=== PATIENT | male | born 1930 | race Caucasian/White ===

== ENCOUNTER 2021-06-17 14:45 | Inpatient (IN) ==
[2021-06-17] MEDS ORDERED: 0.9 % Sodium Chloride 500 ML IVC ONE (17:11)
[2021-06-17] MEDS ORDERED: Aspirin 81 MG TAB.CHEW PO ONE (17:11)
[2021-06-17 17:46] LABS: Basophils % 0.1 %; Eosinophils % 0.5 %; Hematocrit 37.7 % (37.5-50.1); Hemoglobin 12.4 g/dL (12.9-16.9); Immature Granulocytes % 0.4 % (0-4); Lymphocytes # 1.1 K/mcL (0.6-4.6); Lymphocytes % 13.6 %; Mean Corpuscular HGB Conc 32.9 g/dL (31.6-35.5); Mean Corpuscular Hemoglobin 30.2 pg (28.0-33.3); Mean Platelet Volume 11.4 fL (9.4-12.4); Monocytes # 0.9 K/mcL (0.0-1.3); Monocytes % 11.2 %; Neutrophils # 5.9 K/mcL (1.6-8.9); Platelet Count 203 K/mcL (140-400); Red Cell Distribution Width 12.7 % (11.5-14.5); Segmented Neutrophils % 74.2 %; White Blood Count 7.9 K/mcL (4.3-11.1)
[2021-06-17 17:58] LABS: INR 1.1; Prothrombin Time 12.6 Seconds (9.4-12.1)
[2021-06-17 18:01] LABS: Activated Partial Thrombo Time 33.6 Seconds (26.0-36.0); Calcium 9.2 mg/dL (8.6-10.3); Troponin I 0.03 ng/mL (< 0.04)
[2021-06-17] MEDS ORDERED: Melatonin 3 MG TABLET PO PRN (21:29)
[2021-06-17] MEDS ORDERED: Naloxone 0.4 MG/ML INJ IVP PRN (21:29)
[2021-06-17] MEDS ORDERED: *HR* Heparin 5,000 UNIT/ML VIAL IVP PRN (21:37)
[2021-06-17] MEDS ORDERED: *HR* Heparin 5,000 UNIT/ML VIAL IVP ONE (21:37)
[2021-06-17] MEDS ORDERED: Perflutren Lipid Microsphere 1.3 ML in 0.9 % Sodium Chloride 8.7 ML IVP PRN (21:39)
[2021-06-17] MEDS ORDERED: *HR* LORazepam 2 MG/ML VIAL IVP ONE (23:00)
[2021-06-18] MEDS: Heparin 25,000UNIT/250ML 1/2NS 25,000 UNIT/250 ML IV.SOLN IVC SCH (00:13)
[2021-06-18] MEDS: Polymyxn-B/Trimeth Opth Drops 10 ML BOTTLE LEFT EYE SCH ×5 (00:16→22:58)
[2021-06-18 01:29] LABS: Hematocrit 36.1 % (37.5-50.1); Hemoglobin 11.4 g/dL (12.9-16.9); Mean Corpuscular HGB Conc 31.6 g/dL (31.6-35.5); Mean Corpuscular Hemoglobin 29.4 pg (28.0-33.3); Mean Platelet Volume 11.6 fL (9.4-12.4); Platelet Count 195 K/mcL (140-400); Red Blood Count 3.88 M/mcL (4.19-5.50); Red Cell Distribution Width 12.7 % (11.5-14.5)
[2021-06-18 01:36] LABS: INR 1.2
[2021-06-18 01:39] LABS: Heparin anti-factor XA UFH 1.26 IU/mL (0.30-0.70)
[2021-06-18 01:43] LABS: Albumin 3.1 g/dL (3.5-5.7); Albumin/Globulin Ratio 1.3 (1.1-2.2); Bilirubin,Total 0.4 mg/dL (0.3-1.0); Calcium 8.9 mg/dL (8.6-10.3); Globulin 2.4 g/dL (2.4-3.5); Magnesium 2.4 mg/dL (1.6-2.6); Phosphorous 3.6 mg/dL (2.7-4.5); Total Protein 5.5 g/dL (6.4-8.9)
[2021-06-18 07:43] LABS: Troponin I < 0.03 ng/mL (< 0.04)
[2021-06-18 10:32] LABS: Thyroid Stimulating Hormone 2.748 mcIU/mL (0.340-5.600)
[2021-06-18] MEDS ORDERED: 0.9 % Sodium Chloride 1,000 ML IVC SCH (12:45)
[2021-06-18 13:15] LABS: Bilirubin,Urine Negative (Negative); Blood,Urine Negative (Negative); Clarity,Urine Clear (Clear); Color,Urine Yellow (Yellow); Glucose,Urine (UA) Normal (Normal); Hyaline Casts,Urine Few per lpf (None Seen); Ketones,Urine Negative (Negative); Leukocyte Esterase,Urine Negative (Negative); Mucus,Urine Few per lpf (None-Few); Nitrite,Urine Negative (Negative); Protein,Urine 50 mg/dL (Neg-Trace); RBC,Urine 0-3 per hpf (0-3); Specific Gravity,Urine > 1.030 (1.010-1.025); Squamous Epithelial Cell,Urine Few per hpf (None-Few); Transitional Epi Cells,Urine Few per hpf (None-Few); Urobilinogen,Urine Normal (Normal); WBC,Urine 0-3 per hpf (0-3)
[2021-06-18] MEDS: *HR* Heparin 5,000 UNIT/ML VIAL IVP PRN (18:51)
[2021-06-18] MEDS ORDERED: Haloperidol Lactate 5 MG/ML VIAL IVP ONE (21:01)
[2021-06-19] MEDS: Heparin 25,000UNIT/250ML 1/2NS 25,000 UNIT/250 ML IV.SOLN IVC SCH ×3 (02:12→20:39)
[2021-06-19] MEDS: *HR* Heparin 5,000 UNIT/ML VIAL IVP PRN (02:12)
[2021-06-19] MEDS ORDERED: Haloperidol Lactate 5 MG/ML VIAL IVP ONE (06:09)
[2021-06-19 08:28] LABS: Basophils % 0.3 %; Eosinophils # 0.2 K/mcL (0.0-0.6); Eosinophils % 2.3 %; Hematocrit 34.9 % (37.5-50.1); Hemoglobin 11.6 g/dL (12.9-16.9); Immature Granulocytes % 0.4 % (0-4); Lymphocytes # 1.2 K/mcL (0.6-4.6); Mean Corpuscular HGB Conc 33.2 g/dL (31.6-35.5); Mean Corpuscular Hemoglobin 30.2 pg (28.0-33.3); Mean Corpuscular Volume 90.9 fL (83.0-100.0); Mean Platelet Volume 11.7 fL (9.4-12.4); Monocytes # 0.6 K/mcL (0.0-1.3); Monocytes % 9.2 %; Neutrophils # 4.8 K/mcL (1.6-8.9); Platelet Count 208 K/mcL (140-400); Red Blood Count 3.84 M/mcL (4.19-5.50); Red Cell Distribution Width 12.3 % (11.5-14.5); Segmented Neutrophils % 69.8 %; White Blood Count 6.8 K/mcL (4.3-11.1)
[2021-06-19] MEDS ORDERED: QUEtiapine Fumarate 25 MG TABLET PO ONE (09:15)
[2021-06-19 09:28] LABS: BUN/Creatinine Ratio 20 (6-26); Blood Urea Nitrogen 23 mg/dL (8-23); Calcium 8.8 mg/dL (8.6-10.3); Carbon Dioxide 25 mEq/L (23-29); Chloride 108 mEq/L (98-107); Glucose 102 mg/dL (70-105); Osmolality,Calculated 290 (280-300); Phosphorous 2.8 mg/dL (2.7-4.5); Sodium 138 mEq/L (136-145); eGFR For African Americans > 60 (> 60); eGFR For Non-African Americans > 60 (> 60)
[2021-06-19] MEDS: Polymyxn-B/Trimeth Opth Drops 10 ML BOTTLE LEFT EYE SCH ×5 (09:44→20:21)
[2021-06-19] MEDS ORDERED: methylPREDNISolone 125 MG/2 ML VIAL IVP ONE (11:01)
[2021-06-19] MEDS ORDERED: Loratadine 10 MG TABLET PO ONE (11:02)
[2021-06-19] MEDS: lisinopriL 20 MG TABLET PO SCH (11:12)
[2021-06-19] MEDS ORDERED: QUEtiapine Fumarate 25 MG TABLET PO PRN (19:00)
[2021-06-19] MEDS ORDERED: Haloperidol Lactate 5 MG/ML VIAL IVP PRN (20:28)
[2021-06-20 07:47] VITALS: BP 125/70
[2021-06-20] MEDS: lisinopriL 20 MG TABLET PO SCH (08:51)
[2021-06-20] MEDS: Polymyxn-B/Trimeth Opth Drops 10 ML BOTTLE LEFT EYE SCH (08:53)
[2021-06-20 11:04] VITALS: PULSE 77; TEMP 97.9; O2SAT 93
[2021-06-20] MEDS ORDERED: 0.9 % Sodium Chloride 250 ML IVC ONE (11:05)
[2021-06-20] MEDS ORDERED: 0.9 % Sodium Chloride 250 ML ONE (12:13)
== END 2021-06-20 15:48 | disposition home health service (06) | DRG 308 ==
LOC: EMEROOARM 14:45 → 3BNU 14:45 → SUATTDRO 20:44 → 3BNU 21:25
PROVIDERS: ADMIT Internal Medicine; ATTEND Internal Medicine